=== PATIENT | female | born 1985 | race Two or more races ===

== ENCOUNTER 2018-06-01 19:18 | Emergency (ER) | payer OTHER ==
[~2018-06-01] VITALS: Ht 157.5 cm; Wt 65.8 kg
== END 2018-06-01 22:15 | disposition home or self-care (01) ==
LOC: ER 19:18
DX: R53.83 Other fatigue (principal); E78.49 Other hyperlipidemia; R20.2 Paresthesia of skin

== ENCOUNTER 2022-11-29 21:03 | Emergency (ER) | payer OTHER ==
[~2022-11-29] VITALS: Ht 160 cm; Wt 63.5 kg
== END 2022-11-29 22:45 | disposition home or self-care (01) ==
LOC: ER 21:03
PROVIDERS: General Practice
DX: M54.89 Other dorsalgia (principal)